=== PATIENT | male | born 1960 | race Hispanic/Latino ===

== ENCOUNTER 2020-03-05 12:41 | Observation (INO) | payer BC ==
[~2020-03-05] VITALS: Ht 175.3 cm; Wt 118.8 kg
[2020-03-05 12:59] LABS: BASOPHILS % (AUTO) 0.9 % (0.0-5.0); EOSINOPHILS % (AUTO) 2.9 % (0.0-8.0); HEMATOCRIT 42.4 % (42-54); LYMPHOCYTES % (AUTO) 25.7 % (21.0-51.0); MEAN CORPUSCULAR HEMOGLOBIN 30.5 pg (27.0-33.0); MEAN CORPUSCULAR HGB CONC 34.2 g/dL (32.0-36.0); MEAN CORPUSCULAR VOLUME 89.1 fL (79-99); MONOCYTES % (AUTO) 8.8 % (3.0-13.0); NEUTROPHILS % (AUTO) 61.1 % (40.0-77.0); PLATELET COUNT (AUTO) 307 K/uL (130-400); RED BLOOD CELL COUNT(AUTO) 4.76 MIL/uL (4.50-6.20); RED CELL DISTRIBUTION WIDTH 12.5 % (11.0-15.5); WHITE BLOOD COUNT (AUTO) 9.1 K/uL (4.8-10.8)
[2020-03-05 13:02] LABS: APPEARANCE,URINE Clear (CLEAR); BILIRUBIN,URINE Negative (NEGATIVE); COLOR,URINE Yellow (YELLOW); GLUCOSE, URINE (UA) Negative (NEGATIVE); KETONES,URINE Negative (NEGATIVE); LEUKOCYTE ESTERASE ,URINE Negative (NEGATIVE); NITRATE,URINE Negative (NEGATIVE); OCCULT BLOOD,URINE Negative (NEGATIVE); PROTEIN,URINE Negative (NEGATIVE); UROBILINOGEN,URINE 0.2 mg/dL (0.2-1.0)
[2020-03-05 13:30] LABS: ALBUMIN 4.6 g/dL (3.5-5.0); BILIRUBIN,TOTAL 0.7 mg/dL (0.2-1.0); CREATININE 0.9 mg/dL (0.5-1.5); POTASSIUM 3.9 mmol/L (3.5-5.1)
[2020-03-05] MEDS ORDERED: ASPIRIN 325 MG TABLET ONE (13:47)
[2020-03-05] MEDS ORDERED: NITROGLYCERIN 1GM/1 INCH PACKET TD ONE (13:48)
[2020-03-05] MEDS ORDERED: ACETAMINOPHEN EXTRA STRENGTH 500 MG TABLET ONE (13:48)
[2020-03-05 13:49] LABS: B-TYPE NATRIURETIC PEPTIDE 14 pg/mL (0-100)
[2020-03-05 14:41] LABS: INR 0.95 (0.85-1.15); PARTIAL THROMBOPLASTIN TIME 25.3 SEC (26.3-35.5); PROTHROMBIN TIME 9.9 SEC (9.6-11.6)
[2020-03-05] MEDS ORDERED: ONDANSETRON HCL 4 MG/2 ML VIAL IVP PRN (14:45)
[2020-03-05] MEDS ORDERED: ACETAMINOPHEN 325 MG TAB PO PRN (14:45)
[2020-03-05 14:51] LABS: AMPHET/METH SCREEN,URINE NEGATIVE (NEGATIVE); BARBITURATE SCREEN, URINE NEGATIVE (NEGATIVE); BENZODIAZEPINES SCREEN,URINE NEGATIVE (NEGATIVE); CANNABINOID SCREEN,URINE NEGATIVE (NEGATIVE); COCAINE SCREEN,URINE NEGATIVE (NEGATIVE); OPIATE SCREEN,URINE NEGATIVE (NEGATIVE); PHENCYCLIDINE SCREEN,URINE NEGATIVE (NEGATIVE)
[2020-03-05 15:16] LABS: CREATINE KINASE, TOTAL 137 U/L (21-232); MYOGLOBIN 38 ng/mL (10-92); TROPONIN I < 0.04 ng/mL (0.00-0.06)
[2020-03-05 20:45] VITALS: BP 122/73
[2020-03-05 20:48] LABS: CREATINE KINASE, TOTAL 113 U/L (21-232); MYOGLOBIN 34 ng/mL (10-92); TROPONIN I < 0.04 ng/mL (0.00-0.06)
[2020-03-05] MEDS ORDERED: ATORVASTATIN CALCIUM 20 MG TABLET PO SCH (21:00)
[2020-03-05] MEDS ORDERED: ENAL5TAB17 PO (21:15)
[2020-03-05] MEDS ORDERED: NAPR-1023 PO (21:15)
[2020-03-05] MEDS ORDERED: GEMF600T5 PO (21:15)
[2020-03-05] MEDS ORDERED: ATOR40TA71 PO (21:15)
[2020-03-05] MEDS ORDERED: ASCO100031 PO (21:32)
[2020-03-05] MEDS ORDERED: ASPI-1005 PO (21:32)
[2020-03-05] MEDS ORDERED: OMEG-184 PO (21:32)
[2020-03-05] MEDS ORDERED: VITA-164 PO (21:33)
[2020-03-05] MEDS ORDERED: MV-M1TAB20 PO (21:33)
[2020-03-05] MEDS ORDERED: PSYL1CAP2 PO (21:39)
[2020-03-05] MEDS: FAMOTIDINE 20MG TAB 20 MG TAB PO SCH (22:14)
[2020-03-05] MEDS: METOPROLOL TARTRATE 25 MG TAB PO SCH (22:14)
[2020-03-06 00:20] VITALS: BP 109/72
[2020-03-06 04:20] VITALS: BP 113/72
[2020-03-06 06:35] LABS: BASOPHILS % (AUTO) 0.9 % (0.0-5.0); HEMATOCRIT 38.1 % (42-54); LYMPHOCYTES % (AUTO) 21.4 % (21.0-51.0); MEAN CORPUSCULAR HEMOGLOBIN 30.3 pg (27.0-33.0); MEAN CORPUSCULAR HGB CONC 33.6 g/dL (32.0-36.0); MEAN CORPUSCULAR VOLUME 90.1 fL (79-99); MONOCYTES % (AUTO) 10.4 % (3.0-13.0); NEUTROPHILS % (AUTO) 62.9 % (40.0-77.0); PLATELET COUNT (AUTO) 269 K/uL (130-400); RED BLOOD CELL COUNT(AUTO) 4.23 MIL/uL (4.50-6.20); RED CELL DISTRIBUTION WIDTH 12.9 % (11.0-15.5)
[2020-03-06 06:40] LABS: HEMOGLOBIN A1C 5.7 % (4.0-6.0)
[2020-03-06 06:51] LABS: CREATININE 0.9 mg/dL (0.5-1.5); POTASSIUM 4.4 mmol/L (3.5-5.1)
[2020-03-06] MEDS: METOPROLOL TARTRATE 25 MG TAB PO SCH (08:30)
[2020-03-06] MEDS: FAMOTIDINE 20MG TAB 20 MG TAB PO SCH (08:30)
[2020-03-06 08:59] VITALS: BP 135/89
[2020-03-06] MEDS ORDERED: ASPIRIN 81MG TAB.CHEW PO SCH ×2 (09:00→12:01)
[2020-03-06] MEDS ORDERED: ENOXAPARIN SODIUM 30 MG/0.3 ML SQ SCH (09:00)
[2020-03-06 11:17] VITALS: BP 126/81
[2020-03-06] MEDS ORDERED: ENALAPRIL MALEATE 5 MG TAB PO SCH (12:03)
[2020-03-06] MEDS ORDERED: GEMFIBROZIL 600 MG TABLET PO SCH (12:05)
[2020-03-06] MEDS ORDERED: FISH OIL 1000 MG/CAP PO SCH (12:07)
[2020-03-06] MEDS ORDERED: VITAMIN E 400 UNIT CAPSULE PO SCH (12:11)
[2020-03-06 16:28] VITALS: BP 135/89
[2020-03-06] MEDS ORDERED: PSYLLIUM SEED 1 EACH PACKET PO SCH (17:00)
[2020-03-06] MEDS ORDERED: ATORVASTATIN CALCIUM 40 MG TABLET PO SCH (21:00)
[2020-03-07] MEDS ORDERED: FE FUMARATE/FA/MV, MIN COMB#15 1 TAB PO SCH (09:00)
[2020-03-07] MEDS ORDERED: ASCORBIC ACID 500 MG TAB PO SCH (09:00)
== END 2020-03-06 18:32 | disposition home or self-care (01) ==
LOC: EDH 12:41 → EDHIP 14:31 → 3AH 20:37
PROVIDERS: ADMIT Hospitalist; ATTEND Hospitalist
DX: R68.84 Jaw pain (principal); R00.2 Palpitations; I10 Essential (primary) hypertension; E78.5 Hyperlipidemia, unspecified; I20.0 Unstable angina; E78.00 Pure hypercholesterolemia, unspecified; E66.01 Morbid (severe) obesity due to excess calories; F17.200 Nicotine dependence, unspecified, uncomplicated; Z79.899 Other long term (current) drug therapy; Z68.38 Body mass index [BMI] 38.0-38.9, adult
CPT/HCPCS: 36415 ×2; 71045; 80048; 80053; 80061; 80305; 81003; 82550 ×3; 83036; 83874 ×2; 83880; 84484 ×3; 85025 ×2; 85610; 85730; 93005 ×2; 93306; 93356; 96372; 99285; G0378 ×11; J1650

== ENCOUNTER 2024-08-20 19:56 | Emergency (ER) | payer BC, OTHER ==
[~2024-08-20] VITALS: Ht 177.8 cm; Wt 106.6 kg
[~2024-08-20 19:56] MED LIST: ASCO100031 PO; ASPI-1005 PO; ATOR40TA71 PO; ENAL-87 PO; GEMF600T89 PO; MV-M1TAB20 PO; OMEG-184 PO; PSYL1CAP2 PO; VITA-348 PO
--- NOTE | 2024-08-20 20:01 | NUR ---
UA CUP PROVIDED
--- NOTE | 2024-08-20 20:03 | NUR ---
PT I RESTROOM TRYING TO URINATE
--- NOTE | 2024-08-20 20:24 | ERN ---
General Chief Complaint: Urinary Retention Stated Complaint: URINARY RETENTION Time Seen by MD: 19:58 History of Present Illness Initial Comments Patient is a 63-year-old male who can not urinate. He was able to urinate an hour ago but only a little bit of urine came out he continues to have strong urgency feelings. It is uncomfortable for him to sit down he prefers to stand and continue to try and urinate. He has never had this problem before his only past medical history is hypertension and hypercholesterolemia. He says that he has had a little problem urinating in the past because he is old and like an old person he sometimes has trouble urinating. Otherwise he is symptom free. Allergies: Coded Allergies: No Known Drug Allergies (Verified Allergy, Unknown, 03/05/20) No Known Food Allergies (Unverified Allergy, Unknown, 03/05/20) Home Meds Reported Medications Psyllium Husk/Ca Carbonate (Metamucil Plus Calcium Capsule) 1 Each Capsule, 5 EACH PO BIDMEALS, CAP 03/05/20 Mv-Mn/Iron/FA/Herbal Cmplx#190 (Vitamin D3 Complete Caplet) 1 Each Tablet, 1 EACH PO DAILY, TAB 03/05/20 Vitamin E Mixed (Vitamin E) 400 Unit Capsule, 400 UNIT PO DAILY, CAP 03/05/20 Ascorbic Acid (Vitamin C) 1,000 Mg Tablet, 1000 MG PO DAILY, TAB 03/05/20 [place]-3S/Dha/Epa/Fish Oil (Fish Oil 1,200 mg Softgel) 1 Each Capsule, 1 EACH PO DAILY, CAP 03/05/20 Aspirin (ASPIRIN 81MG CHEW TAB) 81 Mg Tab.chew, 81 MG PO DAILY, TAB.CHEW 03/05/20 Gemfibrozil (Gemfibrozil) 600 Mg Tablet, 1 TAB PO BID 03/05/20 Enalapril Maleate (Enalapril Maleate) 5 Mg Tablet, 2 TAB PO DAILY 03/05/20 Atorvastatin Calcium (Atorvastatin Calcium) 40 Mg Tablet, 1 TAB PO HS 03/05/20 Past Medical History Past Medical History: High Cholesterol, Hypertension Past Surgical History: Appendectomy, Tonsillectomy Constitutional: (-) chills, (-) diaphoresis, (-) fever, (-) malaise, (-) weakness, (-) other documentation EENTM: (-) eye pain, (-) blurred vision, (-) tearing, (-) double vision, (-) ear pain, (-) ear discharge, (-) nose pain, (-) nose congestion, (-) throat pain, (-) Throat swelling, (-) mouth pain, (-) tooth pain, (-) mouth swelling, (-) other documentation Respiratory: (-) cough, (-) orthopnea, (-) short of breath, (-) stridor, (-) wheezing, (-) other documentation Cardiovascular: (-) chest pain, (-) edema, (-) palpitations, (-) syncope, (-) dyspnea on exertion, (-) other documentation Gastrointestinal/Abdominal: (-) nausea, (-) vomiting, (-) diarrhea, (-) abdo feliberto pain, (-) abdominal distention, (-) constipation, (-) rectal bleeding, (-) dark stool/melena, (-) other documentation Genitourinary: (+) dysuria Musculoskeletal: (-) Neck pain, (-) back pain, (-) Flank Pain, (-) joint pain, (-) joint swelling, (-) muscle pain, (-) muscle stiffness, (-) gout, (-) other documentation Skin: (-) laceration, (-) contusion, (-) abrasion, (-) abscess, (-) rash, (-) change in color, (-) change in hair, (-) change in nails, (-) diaphoresis, (-) dryness, (-) other documentation Neuro: (-) altered mental status, (-) headache, (-) syncope, (-) paralysis, (-) numbness, (-) seizure, (-) pre-existing deficit, (-) tremors, (-) weakness, (-) dizziness, (-) slurred speech, (-) vertigo, (-) other documentation Physical Exam General Appearance: (+) no apparent distress Orientation: (+) alert Head/Face Trauma: No Eye: bilateral eye normal inspection, bilateral eye PERRL, bilateral eye EOMI Ear, Nose, Throat: (+) hearing grossly normal, (+) normal ENT inspection Neck: (+) normal inspection, (+) supple, (+) full range of motion Respiratory: (+) chest non-tender, (+) lungs clear, (+) well ventilated Heart: (+) regular, (+) no gallop Vascular: (+) no edema Gastrointestinal: (+) soft, (+) non-tender, (+) bowel sound present Results Laboratory and Microbiology Lab and Micro Result Laboratory Tests Test 08/20/24 20:30 08/20/24 21:26 Urine Color LIGHT-YELLOW (YELLOW) Urine Appearance CLEAR (CLEAR) Urine pH 5.0 (5.0-8.0) Urine Specific Gray 1.008 (1.001-1.031) Urine Protein NEGATIVE mg/dL (NEGATIVE) Urine Glucose (UA) NEGATIVE mg/dL (NEGATIVE) Urine Ketones NEGATIVE mg/dL (NEGATIVE) Urine Occult Blood LARGE (NEGATIVE) H Urine Nitrate NEGATIVE (NEGATIVE) Urine Bilirubin NEGATIVE mg/dL (NEGATIVE) Urine Urobilinogen 0.2 mg/dL (0.2-1.0) Urine Leukocyte Esterase NEGATIVE Jude/uL Urine RBC 51-100 /HPF (0-1) H Urine WBC 2-5 /HPF (0-1) H Urine Bacteria None /HPF (None Seen) White Blood Count 4.9 K/uL (4.8-10.8) Red Blood Count 4.70 MIL/uL (4.50-6.20) Hemoglobin 14.1 g/dL (14.0-18.0) Hematocrit 41.9 % (42-54) L Mean Corpuscular Volume 89.1 fL (79-99) Mean Corpuscular Hemoglobin 30.0 pg (27.0-33.0) Mean Corpuscular Hemoglobin Concent 33.7 g/dL (32.0-36.0) Red Cell Distribution Width 12.8 % (11.0-15.5) Platelet Count 269 K/uL (130-400) Mean Platelet Volume 9.7 fL (7.5-10.5) Immature Granulocyte % (Auto) 0.2 % (0-1) Neutrophils (%) (Auto) 49.4 % (40.0-77.0) Lymphocytes (%) (Auto) 34.6 % (21.0-51.0) Monocytes (%) (Auto) 8.5 % (3.0-13.0) Eosinophils (%) (Auto) 5.7 % (0.0-8.0) Basophils (%) (Auto) 1.6 % (0.0-5.0) Neutrophils # (Auto) 2.4 K/uL (1.8-7.7) Lymphocytes # (Auto) 1.7 K/uL (1.0-4.8) Monocytes # (Auto) 0.4 K/uL (0.1-1.0) Eosinophils # (Auto) 0.28 K/uL (0.00-0.70) Basophils # (Auto) 0.08 K/uL (0.00-0.20) Absolute Immature Granulocyte (auto 0.01 K/uL (0-1) Nucleated Red Blood Cells 0.0 % (0.0-0.19) MDM Seems the patient has overflow incontinence. Most likely his bladder is distended from BPH. I will start the workup with a bladder scan. We will probably have to insert a Reid and start Flomax. Once we obtain urine I will do a UA to rule out infection. Patient had 900 cc of urine in his Reid. It is blood-tinged. I will get a CBC and discharge the patient on antibiotics and Flomax if he has prostatitis. If he has a normal CBC I will discharge him on just Flomax. UA is normal except for a large amount of blood. Patient's CBC is normal; therefore, I will just discharge him to follow up with Urology with the Flomax. ED Course Orders Procedure Category Date Status Time Bladder Scan CPOE 08/20/24 Transmitted 20:25 Urinalysis Profile LAB 08/20/24 Complete 20:25 Reid Bag With Home CPOE 08/20/24 Transmitted Instruct 20:25 Nurse Driven Reid FREEDOM 08/20/24 In Process Removal Pro 20:25 Cbc With Differential LAB 08/20/24 Complete 21:19 Vital Signs Date Time Temp Pulse Resp B/P (MAP) Pulse Ox O2 Delivery O2 Flow Rate FiO2 08/20/24 19:57 98.2 97 20 142/91 99 Room Air DX & DISP Disposition: Discharge Departure Impression: Primary Impression: Urinary obstruction Condition: Stable Scripts Finasteride (Finasteride) 1 Mg Tablet 1 TAB PO DAILY for 30 Days, #30 TAB 0 Refills Prov: NATALEE VIVAR MD 08/20/24 Alfuzosin HCl (Alfuzosin HCl) 10 Mg Tab.er.24h 1 TAB PO DAILY for 30 Days, #30 TAB 0 Refills Prov: NATALEE VIVAR MD 08/20/24 Additional Instructions: Please follow-up with the urologist who can evaluate the reason for your urinary obstruction. Giving you to medications the alfuzosin is to help the prostate relax and the finasteride is to help decrease the size of the prostate. Please discuss these medications with the urologist as well. Referrals: SELF,REFERRAL (PCP) NATALEE VIVAR MD Aug 20, 2024 20:24
--- NOTE | 2024-08-20 20:39 | NUR ---
BLADDER SCAN RESULTS REFLECT 879 URINE RETAINED
[2024-08-20 21:01] LABS: APPEARANCE,URINE CLEAR (CLEAR); BILIRUBIN,URINE NEGATIVE (NEGATIVE); COLOR,URINE LIGHT-YELLOW (YELLOW); GLUCOSE, URINE (UA) NEGATIVE (NEGATIVE); KETONES,URINE NEGATIVE (NEGATIVE); LEUKOCYTE ESTERASE ,URINE NEGATIVE Leu/uL (NEGATIVE); NITRATE,URINE NEGATIVE (NEGATIVE); OCCULT BLOOD,URINE LARGE (NEGATIVE); PROTEIN,URINE NEGATIVE (NEGATIVE); UROBILINOGEN,URINE 0.2 mg/dL (0.2-1.0)
[2024-08-20 21:02] LABS: ADD UA MICROSCOPIC YES
[2024-08-20 21:03] LABS: MUCUS,URINE RARE LPF (None Seen); RBC,URINE 51-100 /HPF (0-1)
[2024-08-20 21:32] LABS: BASOPHILS # (AUTO) 0.08 K/uL (0.00-0.20); BASOPHILS % (AUTO) 1.6 % (0.0-5.0); EOSINOPHILS # (AUTO) 0.28 K/uL (0.00-0.70); EOSINOPHILS % (AUTO) 5.7 % (0.0-8.0); HEMATOCRIT 41.9 % (42-54); IMMATURE GRANULOCYTE ABSOLUTE 0.01 K/uL (0-1); LYMPHOCYTES # (AUTO) 1.7 K/uL (1.0-4.8); LYMPHOCYTES % (AUTO) 34.6 % (21.0-51.0); MEAN CORPUSCULAR HGB CONC 33.7 g/dL (32.0-36.0); MEAN CORPUSCULAR VOLUME 89.1 fL (79-99); MONOCYTES # (AUTO) 0.4 K/uL (0.1-1.0); MONOCYTES % (AUTO) 8.5 % (3.0-13.0); NEUTROPHILS # (AUTO) 2.4 K/uL (1.8-7.7); NEUTROPHILS % (AUTO) 49.4 % (40.0-77.0); PLATELET COUNT (AUTO) 269 K/uL (130-400); RED CELL DISTRIBUTION WIDTH 12.8 % (11.0-15.5); WHITE BLOOD COUNT (AUTO) 4.9 K/uL (4.8-10.8)
[2024-08-20] MEDS ORDERED: FINA1TAB13 PO (21:55)
[2024-08-20] MEDS ORDERED: ALFU10TA46 PO (21:55)
--- NOTE | 2024-08-20 22:19 | NUR ---
1600CC TOTAL URINE OUTPUT
[2024-08-20 22:21] VITALS: BP 140/85; PULSE 95; RESP 16; TEMP 98.3; O2SAT 98
== END 2024-08-20 22:30 | disposition home or self-care (01) ==
LOC: EDH 19:56
DX: N13.9 Obstructive and reflux uropathy, unspecified (principal); E78.00 Pure hypercholesterolemia, unspecified; I10 Essential (primary) hypertension; Z79.82 Long term (current) use of aspirin; Z79.899 Other long term (current) drug therapy; Z90.49 Acquired absence of other specified parts of digestive tract; Z90.89 Acquired absence of other organs
CPT/HCPCS: 36415; 51702; 81001; 85025; 99283

== ENCOUNTER 2025-01-23 11:18 | Emergency (ER) | payer BC ==
[~2025-01-23] VITALS: Ht 177.8 cm; Wt 108.9 kg
[~2025-01-23 11:18] MED LIST changes: +ALFU10TA46 PO; -ASCO100031 PO; +ASCO10004 PO; +FINA1TAB13 PO
--- NOTE | 2025-01-23 11:19 | NUR ---
UA CUP PROVIDED
--- NOTE | 2025-01-23 11:28 | EKG ---
[facility] Test Date: 2025-01-23 Test Time: 11:24:21 Pat Name: YURIY LOPEZ Department: ED Room: Gender: M Toxicologist: [id number]//studant : [id number] Requested By: CAMI ALLRED Order Number: [id number] Reading MD: Celeste Mccormack Measurements Intervals [place] Rate: 76 P: 24 MN: 155 QRS: -40 QRSD: 140 T: 2 QT: 366 QTc: 413 Interpretive Statements Sinus rhythm RBBB and LAFB Compared to ECG 03/05/2020 16:48:50 Left anterior fascicular block now present Electronically Signed On 01-26-2025 08:33:57 CDT by Celeste Mccormack Please click the below link to view image of tracing.
--- NOTE | 2025-01-23 11:51 | HMCIMG ---
EXAM: CR Chest, 1 View. CLINICAL HISTORY: CHEST PAIN COMPARISON: 02/15/10 16:47 EDT CR - XR CHEST, 1 VIEW FRONTAL FINDINGS: LUNGS: The lungs show no infiltrate or other acute finding. PLEURAL SPACES: No pleural effusion or pneumothorax. MEDIASTINUM: The cardiomediastinal silhouette is within normal limits. BONES: No acute osseous abnormality. IMPRESSION: No acute cardiopulmonary pathology is evident. /[place]
[2025-01-23 11:54] LABS: IMMATURE GRANULOCYTE ABSOLUTE 0.03 K/uL (0-1); NUCLEATED RED BLOOD CELLS 0.0 % (0.0-0.19); PLATELET COUNT (AUTO) 281 K/uL (130-400); RED BLOOD CELL COUNT(AUTO) 4.99 MIL/uL (4.50-6.20); RED CELL DISTRIBUTION WIDTH 13.2 % (11.0-15.5); WHITE BLOOD COUNT (AUTO) 7.1 K/uL (4.8-10.8)
[2025-01-23 12:01] LABS: CREATININE 0.6 mg/dL (0.5-1.3); GLOMERULAR FILTR. RATE CALC 109.0 mL/min (>90); GLUCOSE,RANDOM 104.0 mg/dL (70-105); SODIUM SERUM 132.0 mmol/L (136-145); UREA NITROGEN, BLOOD 12.0 mg/dL (7-18)
[2025-01-23 12:06] LABS: CREATINE KINASE, TOTAL 145.0 U/L (21-232)
[2025-01-23 13:43] LABS: APPEARANCE,URINE CLEAR (CLEAR); GLUCOSE, URINE (UA) NEGATIVE (NEGATIVE); LEUKOCYTE ESTERASE ,URINE NEGATIVE Leu/uL (NEGATIVE); NITRATE,URINE NEGATIVE (NEGATIVE); OCCULT BLOOD,URINE NEGATIVE (NEGATIVE)
--- NOTE | 2025-01-23 13:48 | EKG ---
[facility] Test Date: 2025-01-23 Test Time: 13:03:12 Pat Name: YURIY LOPEZ Department: ED Room: Gender: M Event Av Operator: 07 : 1960 Requested By: CAMI ALLRED Order Number: [id number] Reading MD: Celeste Mccormack Measurements Intervals [place] Rate: 68 P: 23 ID: [id number] QRS: -30 QRSD: 143 T: -11 QT: 389 QTc: 413 Interpretive Statements Sinus rhythm Right bundle branch block Compared to ECG 01/23/2025 11:24:21 Left anterior fascicular block no longer present Electronically Signed On 01-26-2025 08:34:08 CDT by Celeste Mccormack Please click the below link to view image of tracing.
[2025-01-23 13:57] LABS: ADD UA MICROSCOPIC NO
--- NOTE | 2025-01-23 14:11 | ERN ---
General Chief Complaint: Palpitations Stated Complaint: PALPITATIONS Time Seen by MD: 11:20 History of Present Illness Initial Comments 64M presents for palpitations. He reports a few episodes of brief hard beats. He feels mildly weak when it occurs. The events last only a few seconds. Denies any chest pain or chest pressure during the events. He reports he did have an episode similar to this a few years ago, he was worked up including calcium score and Holter monitor, which was unremarkable. He denies any other symptoms. Allergies: Coded Allergies: No Known Drug Allergies (Verified Allergy, Unknown, 03/05/20) No Known Food Allergies (Unverified Allergy, Unknown, 03/05/20) Home Meds Active Scripts Finasteride (Finasteride) 1 Mg Tablet, 1 TAB PO DAILY for 30 Days, #30 TAB 0 Refills Prov:NATALEE VIVAR MD 08/20/24 Alfuzosin HCl (Alfuzosin HCl) 10 Mg Tab.er.24h, 1 TAB PO DAILY for 30 Days, #30 TAB 0 Refills Prov:NATALEE VIVAR MD 08/20/24 Reported Medications Psyllium Husk/Ca Carbonate (Metamucil Plus Calcium Capsule) 1 Each Capsule, 5 EACH PO BIDMEALS, CAP 03/05/20 Mv-Mn/Iron/FA/Herbal Cmplx#190 (Vitamin D3 Complete Caplet) 1 Each Tablet, 1 EACH PO DAILY, TAB 03/05/20 Vitamin E Mixed (Vitamin E) 400 Unit Capsule, 400 UNIT PO DAILY, CAP 03/05/20 Ascorbic Acid (Vitamin C) 1,000 Mg Tablet, 1000 MG PO DAILY, TAB 03/05/20 [place]-3S/Dha/Epa/Fish Oil (Fish Oil 1,200 mg Softgel) 1 Each Capsule, 1 EACH PO DAILY, CAP 03/05/20 Aspirin (ASPIRIN 81MG CHEW TAB) 81 Mg Tab.chew, 81 MG PO DAILY, TAB.CHEW 03/05/20 Gemfibrozil (Gemfibrozil) 600 Mg Tablet, 1 TAB PO BID 03/05/20 Enalapril Maleate (Enalapril Maleate) 5 Mg Tablet, 2 TAB PO DAILY 03/05/20 Atorvastatin Calcium (Atorvastatin Calcium) 40 Mg Tablet, 1 TAB PO HS 03/05/20 Past Medical History Past Medical History: High Cholesterol, Hypertension Past Surgical History: Appendectomy, Tonsillectomy Results Laboratory and Microbiology Lab and Micro Result Laboratory Tests Test 01/23/25 11:38 01/23/25 12:56 01/23/25 13:33 White Blood Count 7.1 K/uL (4.8-10.8) Red Blood Count 4.99 MIL/uL (4.50-6.20) Hemoglobin 15.0 g/dL (14.0-18.0) Hematocrit 43.1 % (42-54) Mean Corpuscular Volume 86.4 fL (79-99) Mean Corpuscular Hemoglobin 30.1 pg (27.0-33.0) Mean Corpuscular Hemoglobin Concent 34.8 g/dL (32.0-36.0) Red Cell Distribution Width 13.2 % (11.0-15.5) Platelet Count 281 K/uL (130-400) Mean Platelet Volume 9.3 fL (7.5-10.5) Immature Granulocyte % (Auto) 0.4 % (0-1) Neutrophils (%) (Auto) 65.5 % (40.0-77.0) Lymphocytes (%) (Auto) 22.2 % (21.0-51.0) Monocytes (%) (Auto) 9.5 % (3.0-13.0) Eosinophils (%) (Auto) 1.8 % (0.0-8.0) Basophils (%) (Auto) 0.6 % (0.0-5.0) Neutrophils # (Auto) 4.6 K/uL (1.8-7.7) Lymphocytes # (Auto) 1.6 K/uL (1.0-4.8) Monocytes # (Auto) 0.7 K/uL (0.1-1.0) Eosinophils # (Auto) 0.13 K/uL (0.00-0.70) Basophils # (Auto) 0.04 K/uL (0.00-0.20) Absolute Immature Granulocyte (auto 0.03 K/uL (0-1) Nucleated Red Blood Cells 0.0 % (0.0-0.19) Sodium Level 132 mmol/L (136-145) L Potassium Level 3.9 mmol/L (3.5-5.1) Chloride Level 98 mmol/L (101-111) L Carbon Dioxide Level 29 mmol/L (21-32) Blood Urea Nitrogen 12 mg/dL (7-18) Creatinine 0.6 mg/dL (0.5-1.3) Glomerular Filtration Rate Calc 109 mL/min (>90) Random Glucose 104 mg/dL (70-105) Total Calcium 9.6 mg/dL (8.5-10.1) Total Creatine Kinase 145 U/L (21-232) # Troponin I High Sensitivity 8 ng/L (4-75) 8 ng/L (4-75) Urine Color COLORLESS (YELLOW) Urine Appearance CLEAR (CLEAR) Urine pH 7.0 (5.0-8.0) Urine Specific [place] 1.004 (1.001-1.031) Urine Protein NEGATIVE mg/dL (NEGATIVE) Urine Glucose (UA) NEGATIVE mg/dL (NEGATIVE) Urine Ketones NEGATIVE mg/dL (NEGATIVE) Urine Occult Blood NEGATIVE (NEGATIVE) Urine Nitrate NEGATIVE (NEGATIVE) Urine Bilirubin NEGATIVE mg/dL (NEGATIVE) Urine Urobilinogen 0.2 mg/dL (0.2-1.0) Urine Leukocyte Esterase NEGATIVE Jude/uL MDM CC: Palpitations, brief, resolved, no kalyan chest pain Historian: Patient Comorbidities: Dyslipidemia, hypertension Limitations by social determinants of health: None Differential diagnosis: Arrhythmia versus ACS versus electrolyte abnormality versus anxiety versus other EKG: Sinus rhythm, rate 76, left axis deviation, right bundle-branch block morphology, no STEMI. Independently interpreted by me. Vital signs: Stable, remained stable in the ER Labs show no leukocytosis no anemia. Chemistry panel stable. Troponin x2 stable. UA is unremarkable. Chest x-ray is unremarkable. I had a long conversation with the patient regarding the plan. He has been worked up for ACS before in the past. I have low suspicion that he has a ACS since so Zofran chest pain. Brief episodes of palpitations. If anything I suspect the patient may have an a rrhythmia. He was monitored on tele for about 2 hours here in the ER and no further episodes. I spent in time patient seems safe for discharge to follow up as an outpatient for palpitations. ED Course Orders Procedure Category Date Status Time Vital Signs Per CPOE 01/23/25 Transmitted Routine 11:20 Chest 1vw RAD 01/23/25 Resulted 11:20 12 Lead Ekg Tracing- EKG 01/23/25 Complete Technical 11:20 Oxygen By Nc/Pulse Ox CPOE 01/23/25 Transmitted 11:20 Maintain Iv CPOE 01/23/25 Transmitted 11:20 Iv Insertion CPOE 01/23/25 Transmitted 11:20 Cardiac Monitoring CPOE 01/23/25 Transmitted 11:20 Pulse Oximetry With CPOE 01/23/25 Transmitted Vs And Prn 11:20 Cbc With Differential LAB 01/23/25 Complete 11:20 Activity: Br W/Brp CPOE 01/23/25 Transmitted With Assist 11:20 Creatine Kinase, Total LAB 01/23/25 Complete 11:20 Troponin I High LAB 01/23/25 Complete Sensitivity 11:20 Urinalysis Profile LAB 01/23/25 Complete 11:20 Basic Metabolic Panel LAB 01/23/25 Complete 11:20 Troponin I High LAB 01/23/25 Complete Sensitivity 12:35 12 Lead Ekg Tracing- EKG 01/23/25 Complete Technical 12:55 Vital Signs Date Time Temp Pulse Resp B/P (MAP) Pulse Ox O2 Delivery O2 Flow Rate FiO2 01/23/25 14:33 98.1 78 20 133/83 98 Room Air* 0 21 01/23/25 12:40 97.9 71 18 130/80 96 Room Air* 0 21 01/23/25 11:19 97.9 82 16 163/100 98 Room Air DX & DISP Disposition: Discharge Departure Impression: Primary Impression: Palpitations Condition: Stable Additional Instructions: Your workup has been unremarkable. Your EKG has been stable. You have had no signs of abnormal rhythms. Your chest x-ray is unremarkable. Your blood work is unremarkable. As we discussed, consider following up with the assembler tester. I have given you a referral to Dr. Dumont. You can also follow up with Dr. Roe. Please return to the emergency department if you have any concerns. Referrals: MARINA ROE MD, KAMESH MD WORTH, RYAN E DO Jan 23, 2025 14:11
[2025-01-23 14:33] VITALS: BP 133/83; PULSE 78; RESP 20; TEMP 98.1; O2SAT 98
== END 2025-01-23 14:53 | disposition home or self-care (01) ==
LOC: EDH 11:18
DX: R00.2 Palpitations (principal); E78.00 Pure hypercholesterolemia, unspecified; I10 Essential (primary) hypertension; Z79.82 Long term (current) use of aspirin; Z79.899 Other long term (current) drug therapy; Z90.49 Acquired absence of other specified parts of digestive tract; Z90.89 Acquired absence of other organs
CPT/HCPCS: 36415; 71045; 80048; 81003; 82550; 84484; 85025; 93005; 99284